=== PATIENT | female | born 1985 | race Caucasian/White ===

== ENCOUNTER 2017-06-14 20:04 | Inpatient (IN) | payer MEDICAID ==
[~2017-06-14] VITALS: Ht 177.8 cm; Wt 134.2 kg
[2017-06-14] MEDS ORDERED: LEVO75TA4 PO (20:19)
[2017-06-14] MEDS ORDERED: FOLI1TAB4 PO (20:19)
[2017-06-14] MEDS ORDERED: TRAM50TA2 PO (20:19)
[2017-06-14] MEDS ORDERED: LIDO3CRE14 TOP (20:19)
[2017-06-14] MEDS ORDERED: BACL10TA2 PO (20:19)
[2017-06-14] MEDS ORDERED: RANO5TAB PO (20:19)
[2017-06-14] MEDS ORDERED: NEUR600T PO (20:19)
[2017-06-14] MEDS ORDERED: METH2.5TA PO (20:19)
[2017-06-14] MEDS ORDERED: PERCOCET 5MG/325MG TAB PO ONE (22:00)
[2017-06-14] MEDS ORDERED: BACLOFEN 10 MG TAB PO PRN (23:00)
[2017-06-14] MEDS ORDERED: LIDO2.5C15 EXT (23:23)
--- NOTE | 2017-06-15 00:14 | CR.PDOC ---
[facility] Consultation Consultation DATE OF CONSULTATION: Jun 15, 2017 at 00:14 PRIMARY CARE PHYSICIAN: Chiquita Blackwell in [facility] REFERRING PROVIDER: Dr. Hsu ATTENDING PHYSICIAN: Dr. Hsu REASON FOR CONSULTATION: "Find out why she's on Methotrexate and Renexa" CHIEF COMPLAINT: Presented to the ER from pain management clinic in [place] after she experienced worsening back pain resulting in right leg weakness and sensory loss. HISTORY OF PRESENT ILLNESS: Patient is a 32 year old female with a PMHx of Ankylosing Spondylitis (Dx 1 year prior with XR and Positive B27 Serology), Hypothyroidism and Non- cardiac chest pain. Patient presented to the ER from pain management clinic in [place] after she experienced worsening back pain resulting in right leg weakness and sensory loss. She noted that she has had back pain for several years, and on Sunday afternoon, while she was sleeping she had a sudden onset of pain in her lower back. She described the pain as a 10/10, shock like / stabbing pain, shooting down her right leg. She noted that she had a loss of sensation of that leg and it was weaker. She denied any incontinence of stool or urine. She saw pain management in [place] the next day and was told to come to the ER at [facility] after that point. She noticed that the pain had mild improvement with Dilaudid, and it was aggravated with even the slightest movement. She notes that prior to this event, she has had an MRI of her lumo-sacral region on Sunday. However at that time she did not have any significant pain, sensory loss or motor weakness. Patient has noted that in the past she experiences chest pain that she attributes to anxiety. She has followed with a information technology analyst (Dr. Booth) who has done a stress test for her last year and it was noted to be negative. She has not had a cardiac catheterization. She was told to continue to take Ranexa, despite having any cardiac history or receiving any benefit from the medications. Currently she denies any chest pain, shortness of bnreath, cough, palpitations, fever / chills, abdominal pain, constipation, diarrhea or urinary symptoms. She denies any weight change or appetite change. Her primary care provider is Chiquita Blackwell in [place]. ALLERGIES: Please see below. HOME MEDICATIONS: Please see below. PAST MEDICAL HISTORY: Ankylosing Spondylitis (Dx 1 year prior with XR and Positive B27 Serology) Hypothyroidism Non-cardiac chest pain PAST SURGICAL HISTORY: 2 ovarian cysts 3 C-sections Tubal ligation Cholecystectomy Appendectomy Bilateral carpal tunnel surgery FAMILY HISTORY: - Mother with history of hypothyroidism - Father with history of back pain, high cholesterol and atrial fibrillation - She notes her family has a history of breast and colon cancer SOCIAL HISTORY: - Denies the use of illicit drugs; Social alcohol use; Quit smoking 1.5 years ago, but smoker of >25 years at 1 ppd - Denies recent travel or sick contacts - Lives with children - Occupation; 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) REVIEW OF SYSTEMS: 10 point review of systems complete; negative otherwise stated in HPI PHYSICAL EXAMINATION: - Vitals: BP 146/70, HR 93, RR 16, Sat 99%RA, Temp 99.1F - General: Lying in bed, No acute distress, Speaking in full sentences, AAOx3 - HEENT: NC, AT, PERRLA, EOMI - CVS: RRR, +S1S2 - Lungs: Fair air entry bilaterally, Clear to auscultation, No wheezing / rales / rhonchi - Abdomen: Soft, Non-distended, Non-tender, + Bowel sounds x 4 - Extremities: No lower extremity edema, No calf tenderness - Neuro: -- 3/5 at RLE, 5/5 at all others -- Loss of sensation at RLE, intact all else -- No patellar reflex present on R, intact on L -- No response on right, negative Babinski on left - Skin: No visible rashes LABORATORY DATA: Please see below. ASSESSMENT/PLAN: Intractable back pain and motor / sensory loss of right lower extremity likely 2/2 herniated disk - Presented from pain management clinic at [place] because of acute onset of symptoms - Physical reveals reduced sensation and motor strength at right lower extremity - No incontinence of stool or urine - No labs currently - No new imaging noted; came in with MRI from Sunday (However, was prior to onset of symptoms) - Will order stat MRI of LS area without contrast to determine if there is acute cord compression - Neurosurgery is managing this problem as the primary team Ankylosing spondylitis - Dx 1 year prior with XR and Positive B27 Serology - Noted to follow with Dr. Devlin (Rheumatology) - Has been taking Methotrexate 25mg weekly with supplemental Folic acid - Will request medical records from rheumatology Hypothyroidism - c/w Levothyroxine Non-cardiac chest pain - likely 2/2 anxiety - Has had a stress test completed 1 year ago and was noted to be negative - Was not advised to have a cardiac catheterization - Follows with Dr. Booth (Cardiology) - Advised to continue taking Ranexa for angina, despite receiving little benefit - Will check EKG for baseline - Will stop Ranexa at this time - Will start Xanax 0.25 q8h PRN anxiety DVT prophylaxis - c/w SCDs; as per primary team Vital Signs/I&O Vital Signs Date Time Temp Pulse Resp B/P (MAP) Pulse Ox O2 Delivery O2 Flow Rate FiO2 06/14/17 23:00 18 06/14/17 21:38 06/14/17 20:04 99.1 93 99 Room Air Allergies Coded Allergies: Sertraline (Verified Allergy, Intermediate, hives, 06/14/17) Home Medications Scheduled Folic Acid (Folic Acid) 1 Mg Tab, 1 MG PO DAILY, (Reported) Gabapentin (Neurontin) 600 Mg Tab, 600 MG PO QID, (Reported) Levothyroxine Sodium (Synthroid) 75 Mcg Tab, 75 MCG PO DAILY, (Reported) Methotrexate (Methotrexate) 2.5 Mg Tab, 25 MG PO 1XWK, (Reported) Ranolazine (Ranexa) 500 Mg Cristino, 500 MG PO BID, (Reported) Scheduled PRN (Lidocaine/Prilocaine 2.5-2.5 %) 1 Cre Cre, 1 CRE EXT TID PRN for MUSCLE SPASMS , (Reported) USES ON NECK AND LEFT SHOULDER Baclofen (Baclofen) 10 Mg Tab, 10 MG PO TID PRN for MUSCLE SPASMS, (Reported) Tramadol HCl (Tramadol HCl) 50 Mg Tab, 50 MG PO BIDP PRN for PAIN, (Reported) CHANG LANDRY MD Jun 15, 2017 00:14
[2017-06-15] MEDS ORDERED: ALPRAZolam 0.25 MG TAB PO PRN (00:15)
[2017-06-15 00:49] LABS: BASO % 0.5 % (0.0-1.0); EOS # 0.1 K/mm3 (0.0-0.50); EOS % 1.5 % (0.0-3.0); LARGE UNSTAINED CELL # 0.1 K/mm3 (0.0-0.4); LARGE UNSTAINED CELL % 2.5 % (0.0-4.0); LYMPH # 1.3 K/mm3 (1.5-4.5); LYMPH % 24.3 % (24.0-44.0); MEAN CORPUSCULAR HEMOGLOBIN 28.9 pg (27.0-33.0); MEAN CORPUSCULAR HGB CONC 32.9 g/dl (32.0-36.5); MEAN CORPUSCULAR VOLUME 87.8 fl (80.0-96.0); MONO # 0.4 K/mm3 (0.0-0.8); MONO % 6.5 % (0.0-5.0); NEUTROPHILS # 3.5 K/mm3 (1.8-7.7); NEUTROPHILS % 64.7 % (36.0-66.0); PLATELET COUNT, AUTOMATED 363 k/mm3 (150-450); RED CELL DISTRIBUTION WIDTH 16.7 % (11.5-14.5); WHITE BLOOD COUNT 5.4 K/mm3 (4.0-10.0)
[2017-06-15 00:54] LABS: INR 1.07
[2017-06-15 01:26] LABS: ALBUMIN 3.4 GM/DL (3.2-5.2); ALBUMIN/GLOBULIN RATIO 1.03 (1.00-1.93); ALKALINE PHOSPHATASE 127 U/L (45-117); ALT/SGPT 27 U/L (12-78); ANION GAP 8 MEQ/L (8-16); AST/SGOT 12 U/L (15-37); BILIRUBIN,TOTAL 0.4 MG/DL (0.2-1.0); BLOOD UREA NITROGEN 6 MG/DL (7-18); CALCIUM LEVEL 8.8 MG/DL (8.5-10.1); CARBON DIOXIDE LEVEL 26 MEQ/L (21-32); CHLORIDE LEVEL 104 MEQ/L (98-107); CREATININE FOR GFR 0.84 MG/DL (0.55-1.02); GLOMERULAR FILTRATION RATE > 60.0 (>60); GLUCOSE, FASTING 96 MG/DL (70-105); MAGNESIUM LEVEL 2.2 MG/DL (1.8-2.4); PHOSPHORUS LEVEL 3.3 MG/DL (2.5-4.9); POTASSIUM SERUM 3.9 MEQ/L (3.5-5.1); SODIUM LEVEL 138 MEQ/L (136-145); TOTAL PROTEIN 6.7 GM/DL (6.4-8.2)
[2017-06-15 01:58] VITALS: BP 132/70
--- NOTE | 2017-06-15 02:10 | REPUSA ---
REASON FOR EXAM: Back pain. Suspected cord compression. TECHNIQUE: Axial and sagittal T1 and T2 weighted images were obtained. Fat suppressed images were als o obtained. COMPARISON: None FINDINGS: Mild spondylotic changes. Findings are demonstrated by minimal diffuse marginal osteophyte formation. There is normal signal intensity from the visualized bone marrow without evidence of replacement or a cute fracture. The conus is unremarkable. Normal lumbar lordosis. The vertebral alignment is within normal limits. Evaluation of the individual levels revealed the following: L5-S1: There is minimal diffuse disc bulge. Bilateral facet joint arthropathy and ligamentum flavum h ypertrophy. The spinal canal is not narrowed. There is mild bilateral neural foramina narrowing. L4-5: There is grade I anterolisthesis of L4 on L5 measuring 2.2 mm. Mild diffuse disc bulge. Bilater al facet arthropathy and ligamentum flavum hypertrophy. The spinal canal is not narrowed. There is mi ld bilateral neural foramina narrowing. L3-4: There is mild diffuse disc bulge. Bilateral facet joint arthropathy and ligamentum flavum hyper trophy. 5.2 mm synovial cyst arising from the most anterior/lateral aspect of the facet joint. Second jane impingement on the exiting left L4 nerve root and moderate narrowing of the most medial/inner asp ect of the left neural foramen. Secondary impingement on the exiting left L3 nerve. The spinal canal is not narrowed. L2-3: There is mild diffuse disc bulge. The spinal canal is not narrowed. There is no evidence of juan antonio ral foramina narrowing. L1-2: There is mild diffuse disc bulge. The spinal canal is not narrowed. There is no evidence of juan antonio ral foramina narrowing. Normal visualized paraspinous soft tissue structures. Impression: Spondylosis. Multilevel degenerative disc disease. Thank you for your kind referral of this patient. We appreciate the opportunity to participate in thi s patient's care.
[2017-06-15] MEDS ORDERED: NS 1,000 ML IV SCH (02:15)
[2017-06-15] MEDS ORDERED: ACETAMINOPHEN TAB 650MG DOSE (2X325MG) PO PRN (02:45)
[2017-06-15] MEDS ORDERED: EMLA CREAM 5GM (LIDOCAINE/PRILOCAINE) TOP PRN (02:45)
[2017-06-15] MEDS: GABAPENTIN 300 MG CAP PO SCH ×5 (03:09→20:21)
[2017-06-15] MEDS: MORPHINE 2 MG/ML 1ML SYRINGE IV PRN ×5 (03:10→17:07)
[2017-06-15] MEDS: LEVOTHYROXINE 75MCG TABLET (0.075MG) PO SCH (05:50)
[2017-06-15 06:00] VITALS: BP 121/62
[2017-06-15 07:54] LABS: MEAN CORPUSCULAR HEMOGLOBIN 29.4 pg (27.0-33.0); MEAN CORPUSCULAR HGB CONC 33.4 g/dl (32.0-36.5); MEAN CORPUSCULAR VOLUME 87.9 fl (80.0-96.0); RED CELL DISTRIBUTION WIDTH 16.5 % (11.5-14.5); WHITE BLOOD COUNT 4.8 K/mm3 (4.0-10.0)
[2017-06-15 08:03] LABS: INR 1.11
[2017-06-15 08:19] LABS: ANION GAP 8 MEQ/L (8-16); BLOOD UREA NITROGEN 5 MG/DL (7-18); CARBON DIOXIDE LEVEL 25 MEQ/L (21-32); CHLORIDE LEVEL 106 MEQ/L (98-107); CREATININE FOR GFR 0.75 MG/DL (0.55-1.02); GLOMERULAR FILTRATION RATE > 60.0 (>60); GLUCOSE, FASTING 88 MG/DL (70-105); POTASSIUM SERUM 3.9 MEQ/L (3.5-5.1); SODIUM LEVEL 139 MEQ/L (136-145)
[2017-06-15] MEDS: FOLIC ACID 1 MG TAB PO SCH (08:30)
[2017-06-15] MEDS: RANOLAZINE 500 MG ER TAB PO SCH ×2 (08:31→20:20)
[2017-06-15] MEDS: ACETAMINOPHEN TAB 650MG DOSE (2X325MG) PO SCH ×5 (09:19→20:20)
[2017-06-15 14:00] VITALS: BP 118/55
--- NOTE | 2017-06-15 15:17 | REP ---
Chest x-ray: Single AP view. History: Preop, question infiltrate. Findings: The lungs are symmetrically aerated and clear. Pleural angles are sharp. Cardiomediastinal silhouette is unremarkable. Pulmonary vasculature is not increased. Impression: No acute disease. Signed by Gama Rooney MD 06/15/2017 03:19 P
[2017-06-15] MEDS: methylPREDNISolone 4 MG TAB PO SCH (15:41)
--- NOTE | 2017-06-15 16:45 | IPN ---
DATE: 06/15/2017 SUBJECTIVE: The patient is seen and examined in the room today. The patient stated she has significant improvement of her right lower extremity symptoms. She regained her right lower extremity muscle strength. Her sensation of the right lower extremity also recovered almost back to her baseline. The patient stated she was diagnosed with ankylosing spondylosis and that was the reason that the patient has been on the methotrexate. She stated initially the methotrexate worked for her. However, she feels that it started to lose effect. The patient has also been following with pain management in the outside setting and the patient had a history of spine injection in the past. No overnight events reported. The patient does have a history of chest pain but she feels that it is more like anxiety related. The patient did have a stress performed which came back negative. OBJECTIVE: VITAL SIGNS: Temperature is 98.4, pulse 85, respiratory rate 16, blood pressure 121/62, pulse oximetry 97% on room air. GENERAL: No sign of acute distress. Alert and oriented times three. HEENT: Normocephalic, atraumatic. Extraocular motor grossly intact. CARDIOVASCULAR: Positive S1, S2, regular rate. LUNGS: Clear to auscultation bilaterally. No wheezes, rales, or rhonchi. ABDOMEN: Morbidly obese, soft, nontender, nondistended. Bowel sounds present. EXTREMITIES: No edema. No sign of cyanosis. NEUROLOGIC EXAMINATION: Muscle strength 5/5 in both bilateral upper and lower extremities. Sensation to fine touch grossly intact in bilateral lower extremities. LABORATORY DATA: WBC is 4.8, hemoglobin 11.3, hematocrit 33.8, platelet count is 349. Sodium is 139, potassium 3.9, chloride is 106, carbon dioxide 25, BUN 5, creatinine 0.75, GFR greater than 60, fasting glucose 88, calcium is 8. PT is 14.5, INR is 1.11. ASSESSMENT AND PLAN: 1. Ankylosing spondylosis. Diagnosed approximately one year ago and the patient has a positive B27 serology. We will continue the methotrexate for now. The patient may benefit from inpatient pain management consultation. We will refer the decision to her primary neurosurgical team. The patient continued with folic acid supplement. We will followup with record from rheumatology. 2. Hypothyroidism. Continue with Synthroid. We will followup with thyroid-stimulating hormone (TSH) and free T4. 3. History of noncardiac chest pain. She does not have any acute complaint at this moment. The patient had a stress test completed one year ago and it was negative. We will follow with an EKG. We will stop the Ranexa at this moment. 4. Right lower extremity numbness and weakness. We will refer the management to the primary team. During today's examination, the patient does have almost complete recovery to the function. 5. Deep vein thrombosis (DVT) prophylaxis with compression device and we will refer the anticoagulation to the primary team.
[2017-06-15 20:25] VITALS: BP 124/68
--- NOTE | 2017-06-15 20:41 | REP ---
MRI of the SI joints without and with IV contrast: History: Rule out sacral plexus lesion causing atypical right leg pain, weakness, and numbness. Technique: Axial, sagittal and oblique coronal images are acquired. T1 and T2-weighted scans are included with without fat saturation. The field of view is tailored to the sacroiliac joints and the presacral space. The hips are not included in the field of view. Gadolinium enhancement dose: 25 ml of intravenous ProHance is administered. MRI findings: The presacral soft tissues are unremarkable. A normal size uterus is seen with evidence of lower uterine segment incision from prior . Urinary bladder appears intact. There is no evidence of mass or impingement along the course of the nerves through the sciatic notch. No pelvic mass or adenopathy is seen. The coccyx is unremarkable. There is evidence of bilateral sacral ileitis with marrow edema and contrast enhancement on both the sacral and iliac sides of the SI joints bilaterally. There is some T2 fluid signal intensity within each SI joint as well. No definite erosive changes are seen. There is no evidence of ankylosis. No bony destructive lesion is seen. No extra osseous abnormal gadolinium enhancement is appreciated. Impression: Findings consistent with bilateral sacroiliitis with marrow edema and contrast enhancement. This corresponds with areas of sclerosis on CT study from 06/14/2017. There is no evidence of visible sacral plexus lesion. The hips are not included in the field of view of this study. The findings were telephoned to the referring provider at the time of the exam. Signed by Gama Rooney MD 06/19/2017 08:20 A
[2017-06-16] MEDS: ACETAMINOPHEN TAB 650MG DOSE (2X325MG) PO SCH ×3 (00:10→10:22)
[2017-06-16] MEDS ORDERED: ACETAMINOPHEN TAB 650MG DOSE (2X325MG) PO SCH (01:00)
[2017-06-16 05:15] VITALS: BP 133/80
[2017-06-16] MEDS: LEVOTHYROXINE 75MCG TABLET (0.075MG) PO SCH (05:32)
[2017-06-16 07:09] LABS: FREE T4 1.21 NG/DL (0.76-1.46)
[2017-06-16] MEDS: RANOLAZINE 500 MG ER TAB PO SCH (10:15)
[2017-06-16] MEDS: FOLIC ACID 1 MG TAB PO SCH (10:15)
[2017-06-16] MEDS: GABAPENTIN 300 MG CAP PO SCH (10:16)
[2017-06-16] MEDS: methylPREDNISolone 4 MG TAB PO SCH (10:17)
--- NOTE | 2017-06-16 10:47 | CR ---
DATE OF CONSULTATION: 06/16/2017 PRIMARY CARE PROVIDER: Chiquita Blackwell PA-C ATTENDING PHYSICIAN; Dr. Hsu REASON FOR CONSULTATION: To find out why the patient has "numbness and weakness of the entire right leg". HISTORY OF PRESENT ILLNESS: The patient is a 32-year-old female with past medical history significant for seropositive ankylosing spondylitis currently on methotrexate and Ranexa treatment. The patient states that earlier in the week she was doing well with her baseline chronic low back pain. She presented with worsening right lower extremity weakness and sensory loss. She states that she was experiencing severe hip pain which is different than her chronic low back pain. The pain has felt like a 10/10, sharp/stabbing pain, which can travel from her hip to her knee. She states the pain mostly limited her movement and activity. She felt a numb sensation throughout her entire leg, but cannot specify any particular dermatomal distribution. She denies any loss of function of her bowel or bladder. She states that when she wipes her perianal area, there is normal sensation. Despite having this numbness, she is still able to ambulate, suggesting that the patient had normal proprioceptive sense. The patient's MRI of the lumbosacral spine completed did not show any significant etiology of her pain and paresthesias. I requested the patient to have an MRI of the pelvis with and without to assess the lumbosacral plexus. I spoke directly with Dr. Devyn Carrera, reading radiologist, who commented on severe sacroiliitis bilaterally with significant edema. There is a possibility that the edema was putting pressure around surrounding structures causing her to have transient paresthesia. At the present time, the patient states that she continues to have minimal pain at the left hip. She has normal sensation in the entire right lower extremity and demonstrates normal strength on examination presently. The patient has received eight doses of 2 mg of morphine within the last 16 hours and states that her pain is well controlled. She wishes to go home today as she lives two hours away and has four children living alone presently. Her is driving back and forth. The patient's family will discuss with Dr. Hsu if taking the discharge sooner. She has a crushing machine operator to follow up with. PAST MEDICAL HISTORY: 1. Ankylosing spondylitis. 2. HLA B27 seropositive. 3. Hypothyroidism. 4. Noncardiac chest pain. PAST SURGICAL HISTORY: 1. Two ovarian cysts. 3. Three sections. 2. Tubal ligation. 4. Cholecystectomy. 5. Appendectomy. 6. Bilateral carpal tunnel surgery. FAMILY HISTORY: Noncontributory. SOCIAL HISTORY: The patient quit tobacco one and a half years ago. Smoked greater than 25 years, smoking 1 pack per day. Denies any use of recreational drugs or alcohol. REVIEW OF SYSTEMS: 14-point review of systems was obtained and is negative except as per history of present illness (HPI). ALLERGIES: - SERTRALINE PRESENT MEDICATIONS: - baclofen 10 three times a day - morphine 2 mg as needed pain - gabapentin 600 four times a day - levothyroxine 75 mcg by mouth daily - methotrexate 2.5 mg by mouth weekly - Ranexa 500 mg by mouth twice a day - folic acid 1 mg by mouth daily - lidocaine patch as needed PHYSICAL EXAMINATION: Blood pressure is 121/62, pulse rate 85, respiratory rate is 16, temperature is 98.4 degrees Fahrenheit, oxygenation 97% on room air. Current height 5 feet 10 inches. Current weight is 34.2 kg. NEUROLOGIC EXAMINATION: The patient is awake, alert, oriented to person, place and time. Speech, language, comprehension and repetition are intact. Pupils are 3 mm round and reactive to light. Extraocular movements are intact without any nystagmus. Sensation V1, V2, V3 is intact to light touch. No facial asymmetry to activation. Palate elevates symmetrically. Tongue is midline. No weakness of sternocleidomastoid bilaterally. Hearing is subjectively equal to finger rub. There is no pronator drift. Strength is 5/5 including bilateral deltoids, biceps, triceps, handgrip, iliopsoas, quadriceps, anterior tibialis, gastrocnemius. Deep tendon reflexes are 3 at the bilateral patellas, 2+ at bilateral Achilles, Babinski signs are bilaterally absent, an 2+ at bilateral biceps and triceps. Sensory is intact to light touch and temperature in all four extremities without any sensory loss. Coordination: Normal [id number]. Romberg testing is negative. Gait is normal. Evans's maneuver is positive reproducing pain in the right hip. Palpation of the right lateral hip reproduces pain suggesting possible sacroiliitis; however, could not entirely exclude bursitis. ASSESSMENT/PLAN: 32-year-old female with intractable chronic low back pain with worsening right hip pain with MRI of pelvis with and without finding of severe bilateral sacroiliitis with significant inflammation. Etiology of the patient's higher right leg paresthesias remains clear, although it is possible edema from the patient's inflammatory process within the right pelvis may have provoked some transient nerve compression. The patient's symptoms have completely resolved at this time. The patient should followup with her crushing machine operator as scheduled. The patient cannot entirely be excluded for having bursitis of the right hip with the positive Evans's maneuver. I would recommend starting a Medrol Dosepak. I also recommend physical therapy (PT) and occupational therapy (OT) evaluation. The patient lives in the [facility]. She can follow with the local neurologist closer to home if necessary.
--- NOTE | 2017-06-16 11:15 | DS.PDOC ---
General Date of Admission: Jun 14, 2017 Date of Discharge: Jun 16, 2017 Attending Physician: VERA HSU MD Specialist/Consultants Involve: TITUS BENJAMIN MD Specialist/Consultants Involve NAME: MASSIMO KRAUS: 1985[facility] REC#: [id number] [facility] [id number]: TITUS BENJAMIN MD PATIENT STATUS: ADM INCosign: REPORT #: [id number] : cc: [~ rep ct ivnm] DATE OF CONSULTATION: 06/16/2017 PRIMARY CARE PROVIDER: Chiquita Blackwell PA-C ATTENDING PHYSICIAN; Dr. Hsu REASON FOR CONSULTATION: To find out why the patient has "numbness and weakness of the entire right leg". HISTORY OF PRESENT ILLNESS: The patient is a 32-year-old female with past medical history significant for seropositive ankylosing spondylitis currently on methotrexate and Ranexa treatment. The patient states that earlier in the week she was doing well with her baseline chronic low back pain. She presented with worsening right lower extremity weakness and sensory loss. She states that she was experiencing severe hip pain which is different than her chronic low back pain. The pain has felt like a 10/10, sharp/stabbing pain, which can travel from her hip to her knee. She states the pain mostly limited her movement and activity. She felt a numb sensation throughout her entire leg, but cannot specify any particular dermatomal distribution. She denies any loss of function of her bowel or bladder. She states that when she wipes her perianal area, there is normal sensation. Despite having this numbness, she is still able to ambulate, suggesting that the patient had normal proprioceptive sense. The patient's MRI of the lumbosacral spine completed did not show any significant etiology of her pain and paresthesias. I requested the patient to have an MRI of the pelvis with and without to assess the lumbosacral plexus. I spoke directly with Dr. Devyn Carrera, reading radiologist, who commented on severe sacroiliitis bilaterally with significant edema. There is a possibility that the edema was putting pressure around surrounding structures causing her to have transient paresthesia. At the present time, the patient states that she continues to have minimal pain at the left hip. She has normal sensation in the entire right lower extremity and demonstrates normal strength on examination presently. The patient has received eight doses of 2 mg of morphine within the last 16 hours and states that her pain is well controlled. She wishes to go home today as she lives two hours away and has four children living alone presently. Her is driving back and forth. The patient's family will discuss with Dr. Hsu if taking the discharge sooner. She has a tooling engineering tech to follow up with. PAST MEDICAL HISTORY: 1. Ankylosing spondylitis. 2. HLA B27 seropositive. 3. Hypothyroidism. 4. Noncardiac chest pain. PAST SURGICAL HISTORY: 1. Two ovarian cysts. 3. Three sections. 2. Tubal ligation. 4. Cholecystectomy. 5. Appendectomy. 6. Bilateral carpal tunnel surgery. FAMILY HISTORY: Noncontributory. SOCIAL HISTORY: The patient quit tobacco one and a half years ago. Smoked greater than 25 years, smoking 1 pack per day. Denies any use of recreational drugs or alcohol. REVIEW OF SYSTEMS: 14-point review of systems was obtained and is negative except as per history of present illness (HPI). ALLERGIES: - SERTRALINE PRESENT MEDICATIONS: - baclofen 10 three times a day - morphine 2 mg as needed pain - gabapentin 600 four times a day - levothyroxine 75 mcg by mouth daily - methotrexate 2.5 mg by mouth weekly - Ranexa 500 mg by mouth twice a day - folic acid 1 mg by mouth daily - lidocaine patch as needed PHYSICAL EXAMINATION: Blood pressure is 121/62, pulse rate 85, respiratory rate is 16, temperature is 98.4 degrees Fahrenheit, oxygenation 97% on room air. Current height 5 feet 10 inches. Current weight is 34.2 kg. NEUROLOGIC EXAMINATION: The patient is awake, alert, oriented to person, place and time. Speech, language, comprehension and repetition are intact. Pupils are 3 mm round and reactive to light. Extraocular movements are intact without any nystagmus. Sensation V1, V2, V3 is intact to light touch. No facial asymmetry to activation. Palate elevates symmetrically. Tongue is midline. No weakness of sternocleidomastoid bilaterally. Hearing is subjectively equal to finger rub. There is no pronator drift. Strength is 5/5 including bilateral deltoids, biceps, triceps, handgrip, iliopsoas, quadriceps, anterior tibialis, gastrocnemius. Deep tendon reflexes are 3 at the bilateral patellas, 2+ at bilateral Achilles, Babinski signs are bilaterally absent, an 2+ at bilateral biceps and triceps. Sensory is intact to light touch and temperature in all four extremities without any sensory loss. Coordination: Normal [id number]. Romberg testing is negative. Gait is normal. Evans's maneuver is positive reproducing pain in the right hip. Palpation of the right lateral hip reproduces pain suggesting possible sacroiliitis; however, could not entirely exclude bursitis. ASSESSMENT/PLAN: 32-year-old female with intractable chronic low back pain with worsening right hip pain with MRI of pelvis with and without finding of severe bilateral sacroiliitis with significant inflammation. Etiology of the patient's higher right leg paresthesias remains clear, although it is possible edema from the patient's inflammatory process within the right pelvis may have provoked some transient nerve compression. The patient's symptoms have completely resolved at this time. The patient should followup with her tooling engineering tech as scheduled. The patient cannot entirely be excluded for having bursitis of the right hip with the positive Evans's maneuver. I would recommend starting a Medrol Dosepak. I also recommend physical therapy (PT) and occupational therapy (OT) evaluation. The patient lives in the [facility]. She can follow with the local neurologist closer to home if necessary. DD: TITUS BENJAMIN MD 06/16/17 0951 Discharge Summary Discharge Summary Patient name: Verónica Kraus Age: 32 yo Gender: F Admission date: 06.14.2017 Discharge Date: 06.16.2017 Principal Diagnosis: Right leg radiculopathy, L5-S1 foraminal stenosis, L-spine congenital central stenosis, Grade I anterolystesis L4-5 Other diagnoses: Bilateral sacral ileitis, Lumbar myofascial pain syndrome Reason for admission: Intractable low back and right leg pain, right leg numbness and weakness Course in hospital: Result of LD trial has been equivocal. impression as well as nurses that patient improved after trial, but patient refused to sign consent for BRUSHER shunt placement. Hospitalist service, PT, Neurology have been involved in patient care. PAST MEDICAL HISTORY: 1. Ankylosing spondylosis? 2. Hypothyroidism. 3. Obesity Condition on discharge: AVSS, hemodynamically and respiratory stable; abdomen soft, bowel sound x 4 Neuroexam: A+Ox3, GCS=15, SHELBY, normal speech, UE=R=L=5/5 in all myotoms Right leg sensation is back to her baseline. Mobility is cleared by PT. Patient able to sleep overnight without use of opioids. Good pain control with regular Tylenol around oclock. MRI L-spine: 06.14.2017 REASON FOR EXAM: Back pain. Suspected cord compression. TECHNIQUE: Axial and sagittal T1 and T2 weighted images were obtained. Fat suppressed images were also obtained. COMPARISON: None FINDINGS: Mild spondylotic changes. Findings are demonstrated by minimal diffuse marginal osteophyte formation. There is normal signal intensity from the visualized bone marrow without evidence of replacement or acute fracture. The conus is unremarkable. Normal lumbar lordosis. The vertebral alignment is within normal limits. Evaluation of the individual levels revealed the following: L5-S1: There is minimal diffuse disc bulge. Bilateral facet joint arthropathy and ligamentum flavum hypertrophy. The spinal canal is not narrowed. There is mild bilateral neural foramina narrowing. L4-5: There is grade I anterolisthesis of L4 on L5 measuring 2.2 mm. Mild diffuse disc bulge. Bilateral facet arthropathy and ligamentum flavum hypertrophy. The spinal canal is not narrowed. There is mild bilateral neural foramina narrowing. L3-4: There is mild diffuse disc bulge. Bilateral facet joint arthropathy and ligamentum flavum hypertrophy. 5.2 mm synovial cyst arising from the most anterior/lateral aspect of the facet joint. Secondary impingement on the exiting left L4 nerve root and moderate narrowing of the most medial/inner aspect of the left neural foramen. Secondary impingement on the exiting left L3 nerve. The spinal canal is not narrowed. L2-3: There is mild diffuse disc bulge. The spinal canal is not narrowed. There is no evidence of neural foramina narrowing. L1-2: There is mild diffuse disc bulge. The spinal canal is not narrowed. There is no evidence of neural foramina narrowing. Normal visualized paraspinous soft tissue structures. 06/15/2017 MRI pelvis: MRI of the SI joints without and with IV contrast: History: Rule out sacral plexus lesion causing atypical right leg pain, weakness, and numbness. Technique: Axial, sagittal and oblique coronal images are acquired. T1 and T2-weighted scans are included with without fat saturation. The field of view is tailored to the sacroiliac joints and the presacral space. The hips are not included in the field of view. Gadolinium enhancement dose: 25 ml of intravenous ProHance is administered. MRI findings: The presacral soft tissues are unremarkable. A normal size uterus is seen with evidence of lower uterine segment incision from prior . Urinary bladder appears intact. There is no evidence of mass or impingement along the course of the nerves through the sciatic notch. No pelvic mass or adenopathy is seen. The coccyx is unremarkable. There is evidence of bilateral sacral ileitis with marrow edema and contrast enhancement on both the sacral and iliac sides of the SI joints bilaterally. There is some T2 fluid signal intensity within each SI joint as well. No definite erosive changes are seen. There is no evidence of ankylosis. No bony destructive lesion is seen. No extra osseous abnormal gadolinium enhancement is appreciated. Impression: Findings consistent with bilateral sacral ileitis with marrow edema and contrast enhancement. This corresponds with areas of sclerosis on CT study from 06/14/2017. There is no evidence of visible sacral plexus lesion. The hips are not included in the field of view of this study. Neurology evaluation: ASSESSMENT/PLAN: 32-year-old female with intractable chronic low back pain with worsening right hip pain with MRI of pelvis with and without finding of severe bilateral sacroiliitis with significant inflammation. Etiology of the patient's higher right leg paresthesias remains clear, although it is possible edema from the patient's inflammatory process within the right pelvis may have provoked some transient nerve compression. The patient's symptoms have completely resolved at this time. The patient should followup with her tooling engineering tech as scheduled. The patient cannot entirely be excluded for having bursitis of the right hip with the positive Evans's maneuver. I would recommend starting a Medrol Dosepak. I also recommend physical therapy (PT) and occupational therapy (OT) evaluation. The patient lives in the [facility] area. She can follow with the local neurologist closer to home if necessary. Follow up instruction: 1. Follow with [facility] Neurosurgery Dr. Hsu as needed 2. Continue on Acetaminophen 650 mg PO q4h with LFT monitoring by primary pain physician 3. Referral to interventional pain management for L5-S1 selective foraminal block by primary pain physician 4. PT referral after foraminal block by PCP 5. See recommendations by Neurology 6. Reassessment by rheumatology of sacro-ileitis (consider SI joint fusion) Laboratory Data Vital Signs Date Time Temp Pulse Resp B/P (MAP) Pulse Ox O2 Delivery O2 Flow Rate FiO2 06/16/17 05:15 97.7 75 16 133/80 (97) 96 Room Air I&O- Last 24 Hours up to 6 AM 06/16/17 06:00 Intake Total 2280 ml Output Total 900 ml Balance 1380 ml Laboratory Tests 2 06/16/17 05:23: Thyroid Stimulating Hormone (TSH) 0.282L, Free Thyroxine 1.21 Discharge Medications Scheduled Folic Acid (Folic Acid) 1 Mg Tab, 1 MG PO DAILY, (Reported) Gabapentin (Neurontin) 600 Mg Tab, 600 MG PO QID, (Reported) Levothyroxine Sodium (Synthroid) 75 Mcg Tab, 75 MCG PO DAILY, (Reported) Methotrexate (Methotrexate) 2.5 Mg Tab, 25 MG PO 1XWK, (Reported) Scheduled PRN (Lidocaine/Prilocaine 2.5-2.5 %) 1 Cre Cre, 1 CRE EXT TID PRN for MUSCLE SPASMS , (Reported) USES ON NECK AND LEFT SHOULDER Baclofen (Baclofen) 10 Mg Tab, 10 MG PO TID PRN for MUSCLE SPASMS, (Reported) Tramadol HCl (Tramadol HCl) 50 Mg Tab, 50 MG PO BIDP PRN for PAIN, (Reported) Allergies Coded Allergies: Sertraline (Verified Allergy, Intermediate, hives, 06/14/17) VERA HSU MD Jun 16, 2017 11:15
--- NOTE | 2017-06-22 11:14 | REP ---
Clinical: Lower back pain. Technique: Axial noncontrast images from mid T11 through mid sacrum with coronal and sagittal re-formations. Findings: The vertebral bodies are normal in contour and alignment/lordosis. There is no evidence for acute fracture / compression injury or subluxation. No evidence for spondylolysis or spondylolisthesis. The disc spaces appear relatively well maintained and without obvious disc bulge or herniation by CT evaluation. There is however suggestions for mild multilevel canal stenosis from the L2-3 level through the L5-S1 level secondary to hypertrophic facet changes and prominent appearance to the ligamentum flavum. Associated narrowing of the lateral recesses at the L2-3, and L5-L1 levels suggested although the neural foramen appear patent on sagittal re-formations and without obvious nerve root impingement. Impression: Mild/moderate multilevel canal stenosis from L2-3 through L5-S1 as described above. No obvious disc bulge or herniation noted. If the patient remains symptomatic consider MRI for further investigation. Signed by Blake Smith MD 06/14/2017 09:01 P
== END 2017-06-16 11:14 | disposition home or self-care (01) | DRG 347 ==
LOC: M ED 20:04 → M ED INP 22:55 → M MSPAV 06-15 01:58
PROVIDERS: ADMIT Neurological Surgery; ATTEND Neurological Surgery
DX: M48.07 Spinal stenosis, lumbosacral region (principal); E03.9 Hypothyroidism, unspecified; M54.16 Radiculopathy, lumbar region; M79.1 Myalgia; M46.1 Sacroiliitis, not elsewhere classified; Z98.51 Tubal ligation status; Z90.49 Acquired absence of other specified parts of digestive tract; Z87.891 Personal history of nicotine dependence; Z88.8 Allergy status to other drugs, medicaments and biological substances; Z79.899 Other long term (current) drug therapy; M48.06 Spinal stenosis, lumbar region